=== PATIENT | male | born 1960 | race Two or more races ===

== ENCOUNTER 2023-02-09 06:15 | Emergency (ER) | payer OTHER ==
[~2023-02-09] VITALS: Ht 175.3 cm; Wt 74.8 kg
[2023-02-09] MEDS ORDERED: SYNTHROID100 MCG PO (06:23)
[2023-02-10] MEDS ORDERED: INTESTINEX680 M1 PO (21:15)
[2023-02-10] MEDS ORDERED: CIPRO500 MG PO (21:15)
[2023-02-10] MEDS ORDERED: DICY20TA PO (21:15)
[2023-02-10] MEDS ORDERED: PEPCID AC20 MG PO (21:15)
[2023-02-10] MEDS ORDERED: METRONIDAZOLE500 MG PO (21:15)
== END 2023-02-09 07:55 | disposition home or self-care (01) ==
LOC: ER 06:15
DX: K59.1 Functional diarrhea (principal); Z88.8 Allergy status to other drugs, medicaments and biological substances

== ENCOUNTER 2023-02-10 17:04 | Emergency (ER) | payer OTHER ==
[~2023-02-10] VITALS: Ht 175.3 cm; Wt 74.8 kg
[~2023-02-10 17:04] MED LIST: SYNTHROID100 MCG PO
[2023-02-10] MEDS ORDERED: PEPCID AC20 MG PO (21:15)
[2023-02-10] MEDS ORDERED: METRONIDAZOLE500 MG PO (21:15)
[2023-02-10] MEDS ORDERED: DICY20TA PO (21:15)
[2023-02-10] MEDS ORDERED: CIPRO500 MG PO (21:15)
[2023-02-10] MEDS ORDERED: INTESTINEX680 M1 PO (21:15)
== END 2023-02-10 21:24 | disposition home or self-care (01) ==
LOC: ER 17:04
PROVIDERS: General Practice
DX: A09 Infectious gastroenteritis and colitis, unspecified (principal); R10.9 Unspecified abdominal pain; Z88.8 Allergy status to other drugs, medicaments and biological substances

== ENCOUNTER 2023-04-28 17:13 | Emergency (ER) | payer OTHER ==
[~2023-04-28] VITALS: Ht 175.3 cm; Wt 73.5 kg
[~2023-04-28 17:13] MED LIST changes: +CIPRO500 MG PO; +DICY20TA PO; +INTESTINEX680 M1 PO; +METRONIDAZOLE500 MG PO; +PEPCID AC20 MG PO
[2023-04-28 19:31] LABS: HEMATOCRIT 41.4 % (39.0-48.0); HEMOGLOBIN 13.8 g/dL (13-16.00); MEAN CELL VOLUME 96.9 fL (80.0-100.00); MEAN CORPUSCULAR HEMOGLOBIN 32.2 pg (27.00-32.0); MEAN CORPUSCULAR HGB CONC 33.3 g/dl (32.0-36.0); PLATELET COUNT 236 K/uL (150-450); RED BLOOD COUNT 4.27 M/uL (4.00-6.00); RED CELL DISTRIBUTION WIDTH 13.9 % (11.5-14.5)
== END 2023-04-28 20:16 | disposition home or self-care (01) ==
LOC: ER 17:13
PROVIDERS: General Practice
DX: R53.1 Weakness (principal); Z20.822 Contact with and (suspected) exposure to COVID-19